=== PATIENT | female | born 1960 | race Caucasian/White ===

== ENCOUNTER → 2019-11-21 10:33 | Outpatient (BNVA) | payer MEDICARE, MEDICAID, SELFPAY | PROVIDERS: Visit Provider Psychiatry & Neurology Neurology | DX: I65.22 Occlusion and stenosis of left carotid artery (principal); G43.009 Migraine without aura, not intractable, without status migrainosus; G40.001 Localization-related (focal) (partial) idiopathic epilepsy and epileptic syndromes with seizures of localized onset, not intractable, with status epilepticus | CPT/HCPCS: 99205 ==

== ENCOUNTER → 2020-05-21 10:41 | Outpatient (BNVA) | payer MEDICARE, MEDICAID, SELFPAY | PROVIDERS: Visit Provider Psychiatry & Neurology Neurology | DX: I65.22 Occlusion and stenosis of left carotid artery (principal); G40.001 Localization-related (focal) (partial) idiopathic epilepsy and epileptic syndromes with seizures of localized onset, not intractable, with status epilepticus; G43.009 Migraine without aura, not intractable, without status migrainosus; R25.1 Tremor, unspecified | CPT/HCPCS: 99213; 99443 ==

== ENCOUNTER 2020-06-05 01:20 | Outpatient (CLI) | payer MEDICARE, MEDICAID, SELFPAY ==
--- NOTE | 2020-06-05 08:15 | DI.US_ITS ---
EXAM: US CAROTID CLINICAL HISTORY: asymptomatic L ICA stenosis,I65.22 TECHNIQUE: Ultrasound performed using standard protocol. COMPARISON: No exams were available for comparison FINDINGS: Bilateral duplex carotid ultrasound was performed. There is mild visible atheromatous plaque in the carotid bulbs bilaterally. Flow velocities in the common, internal, and external carotid arteries ar e within normal limits bilaterally. There is bilateral antegrade vertebral flow. IMPRESSION: No evidence of a hemodynamically significant carotid stenosis. DATA REPOSITORY:
== END 2020-06-05 01:40 ==
PROVIDERS: PCP Nurse Practitioner Family; Visit Provider Psychiatry & Neurology Neurology
DX: I65.22 Occlusion and stenosis of left carotid artery
CPT/HCPCS: 93880

== ENCOUNTER → 2021-01-02 13:04 | Outpatient (BNVA) | payer MEDICARE, MEDICAID, SELFPAY | PROVIDERS: PCP Nurse Practitioner Family; Referring Provider Nurse Practitioner Family; Visit Provider Psychiatry & Neurology Neurology | DX: G40.001 Localization-related (focal) (partial) idiopathic epilepsy and epileptic syndromes with seizures of localized onset, not intractable, with status epilepticus (principal); F41.9 Anxiety disorder, unspecified; F40.00 Agoraphobia, unspecified; G43.009 Migraine without aura, not intractable, without status migrainosus; I65.22 Occlusion and stenosis of left carotid artery; R25.1 Tremor, unspecified | CPT/HCPCS: 99214 ==

== ENCOUNTER → 2021-09-10 09:19 | Outpatient (BNVA) | payer MEDICARE, MEDICAID, SELFPAY | PROVIDERS: PCP Nurse Practitioner Family; Referring Provider Nurse Practitioner Family; Visit Provider Psychiatry & Neurology Neurology | DX: G40.001 Localization-related (focal) (partial) idiopathic epilepsy and epileptic syndromes with seizures of localized onset, not intractable, with status epilepticus (principal); G43.009 Migraine without aura, not intractable, without status migrainosus; R25.1 Tremor, unspecified; F41.9 Anxiety disorder, unspecified; F40.00 Agoraphobia, unspecified | CPT/HCPCS: 99214 ==

== ENCOUNTER → 2021-10-14 12:17 | Outpatient (BNVA) | payer MEDICARE, MEDICAID, SELFPAY | PROVIDERS: PCP Nurse Practitioner Family; Referring Provider Nurse Practitioner Family; Visit Provider Psychiatry & Neurology Neurology | DX: G40.001 Localization-related (focal) (partial) idiopathic epilepsy and epileptic syndromes with seizures of localized onset, not intractable, with status epilepticus (principal); G43.009 Migraine without aura, not intractable, without status migrainosus; R25.1 Tremor, unspecified; F41.9 Anxiety disorder, unspecified; F40.00 Agoraphobia, unspecified | CPT/HCPCS: 99215 ==

== ENCOUNTER → 2021-11-27 12:18 | Outpatient (BNVA) | payer MEDICARE, MEDICAID, SELFPAY | PROVIDERS: PCP Nurse Practitioner Family; Referring Provider Nurse Practitioner Family; Visit Provider Psychiatry & Neurology Neurology | DX: G40.001 Localization-related (focal) (partial) idiopathic epilepsy and epileptic syndromes with seizures of localized onset, not intractable, with status epilepticus (principal); G43.009 Migraine without aura, not intractable, without status migrainosus; R25.1 Tremor, unspecified; F41.9 Anxiety disorder, unspecified; F40.00 Agoraphobia, unspecified; G04.81 Other encephalitis and encephalomyelitis | CPT/HCPCS: 99214 ==

== ENCOUNTER → 2022-02-02 13:09 | Outpatient (BNVA) | payer MEDICARE, MEDICAID, SELFPAY | PROVIDERS: PCP Nurse Practitioner Family; Referring Provider Nurse Practitioner Family; Visit Provider Psychiatry & Neurology Neurology | DX: G40.001 Localization-related (focal) (partial) idiopathic epilepsy and epileptic syndromes with seizures of localized onset, not intractable, with status epilepticus (principal); G43.009 Migraine without aura, not intractable, without status migrainosus; R25.1 Tremor, unspecified; F41.9 Anxiety disorder, unspecified; F40.00 Agoraphobia, unspecified; G04.81 Other encephalitis and encephalomyelitis; Z79.82 Long term (current) use of aspirin | CPT/HCPCS: 99214 ==

== ENCOUNTER → 2022-10-12 09:29 | Outpatient (BNVA) | payer MEDICARE, MEDICAID, SELFPAY | PROVIDERS: PCP Nurse Practitioner Family; Referring Provider Nurse Practitioner Family; Visit Provider Psychiatry & Neurology Neurology | DX: G40.001 Localization-related (focal) (partial) idiopathic epilepsy and epileptic syndromes with seizures of localized onset, not intractable, with status epilepticus (principal); G43.009 Migraine without aura, not intractable, without status migrainosus; R25.1 Tremor, unspecified; G04.81 Other encephalitis and encephalomyelitis; Z79.82 Long term (current) use of aspirin; F41.9 Anxiety disorder, unspecified; F40.00 Agoraphobia, unspecified | CPT/HCPCS: 99214 ==

== ENCOUNTER → 2023-04-13 09:06 | Outpatient (BNVA) | payer MEDICARE, MEDICAID, SELFPAY | PROVIDERS: PCP Nurse Practitioner Family; Referring Provider Nurse Practitioner Family; Visit Provider Psychiatry & Neurology Neurology | DX: G40.001 Localization-related (focal) (partial) idiopathic epilepsy and epileptic syndromes with seizures of localized onset, not intractable, with status epilepticus (principal); G43.009 Migraine without aura, not intractable, without status migrainosus; R25.1 Tremor, unspecified; F41.9 Anxiety disorder, unspecified; G04.81 Other encephalitis and encephalomyelitis; Z79.82 Long term (current) use of aspirin; F40.00 Agoraphobia, unspecified; R20.8 Other disturbances of skin sensation | CPT/HCPCS: 99215 ==

== ENCOUNTER → 2023-08-02 13:43 | Outpatient (BNVA) | payer MEDICARE, MEDICAID, SELFPAY | PROVIDERS: PCP Nurse Practitioner Family; Referring Provider Nurse Practitioner Family; Visit Provider Psychiatry & Neurology Neurology | DX: G40.001 Localization-related (focal) (partial) idiopathic epilepsy and epileptic syndromes with seizures of localized onset, not intractable, with status epilepticus (principal); G43.009 Migraine without aura, not intractable, without status migrainosus; R25.1 Tremor, unspecified; F41.9 Anxiety disorder, unspecified; F40.00 Agoraphobia, unspecified; G04.81 Other encephalitis and encephalomyelitis | CPT/HCPCS: 99214 ==

== ENCOUNTER → 2024-02-01 09:19 | Outpatient (BNVA) | payer MEDICARE, MEDICAID, SELFPAY | PROVIDERS: PCP Nurse Practitioner Family; Referring Provider Nurse Practitioner Family; Visit Provider Psychiatry & Neurology Neurology | DX: G40.001 Localization-related (focal) (partial) idiopathic epilepsy and epileptic syndromes with seizures of localized onset, not intractable, with status epilepticus (principal); G43.009 Migraine without aura, not intractable, without status migrainosus; R25.1 Tremor, unspecified; G04.81 Other encephalitis and encephalomyelitis; F41.9 Anxiety disorder, unspecified; F40.00 Agoraphobia, unspecified | CPT/HCPCS: 99443 ==

== ENCOUNTER → 2024-04-20 12:17 | Outpatient (BNVA) | payer MEDICARE, MEDICAID, SELFPAY | PROVIDERS: PCP Nurse Practitioner Family; Referring Provider Nurse Practitioner Family; Visit Provider Psychiatry & Neurology Neurology | DX: G40.001 Localization-related (focal) (partial) idiopathic epilepsy and epileptic syndromes with seizures of localized onset, not intractable, with status epilepticus (principal); G43.009 Migraine without aura, not intractable, without status migrainosus; F41.9 Anxiety disorder, unspecified; F40.00 Agoraphobia, unspecified; G04.81 Other encephalitis and encephalomyelitis | CPT/HCPCS: 99214 ==